=== PATIENT | female | born 1950 | race Caucasian/White ===

== ENCOUNTER 2025-03-02 09:16 | Outpatient (CLI) | payer MEDICARE, SELFPAY ==
--- NOTE | 2025-03-02 10:42 | P.ANES_ITS ---
Anesthesia Charges Start Date/Time Anesthesia Start Date: 03/02/25 Anesthesia Start Time: 10:15 Stop Date/Time Anesthesia Stop Date: 03/02/25 Anesthesia Stop Time: 10:41 Coding CPT Codes CPT Codes: HEMANTS LWR INTST NDSC NOS - [id number] ([id number]) P2 - PATIENT W/MILD SYST DISEASE, QZ - TAXATION CONSULTANT SVC W/O CUSTOMS OFFICER BY
--- NOTE | 2025-03-02 10:42 | W.ANESCHARGE ---
Anesthesia Charges Start Date/Time Anesthesia Start Date: 03/02/25 Anesthesia Start Time: 10:15 Stop Date/Time Anesthesia Stop Date: 03/02/25 Anesthesia Stop Time: 10:41 Coding CPT Codes CPT Codes: HEMANTS LWR INTST NDSC NOS - [id number] ([id number]) P2 - PATIENT W/MILD SYST DISEASE, QZ - BULK PICKER SVC W/O PILLOW FILLER BY
== END 2025-03-02 09:17 | disposition home or self-care (01) ==
LOC: OP CLINIC 09:21
PROVIDERS: PCP Family Medicine; Visit Provider Internal Medicine Gastroenterology
DX: Z12.11 Encounter for screening for malignant neoplasm of colon (principal); D12.4 Benign neoplasm of descending colon; Z15.09 Genetic susceptibility to other malignant neoplasm
CPT/HCPCS: 00811; 45385; 88305; J2704